=== PATIENT | male | born 1950 | race Caucasian/White ===

== ENCOUNTER 2020-06-10 17:15 | Inpatient (IN) | payer MEDICARE, OTHER ==
[~2020-06-10] VITALS: Ht 162.6 cm; Wt 83.9 kg
--- NOTE | 2020-06-10 17:45 | NUR ---
home, found in ground unable to take care ofself s/p welfare check. per ems, pt depressed s/p passing 1 month ago. patient a/ox3, breathing even and unlabored, no sob noted. Needs attended, attached to the surveillance monitor.
[2020-06-10] MEDS ORDERED: IV NS 0.9% 1,000 ML BAG IV ONE (18:00)
--- NOTE | 2020-06-10 18:11 | NUR ---
SEEN BY DR. VENTURA.
[2020-06-10 18:21] LABS: BASOPHILS % (AUTO) 0.5 % (0.0-2.0); EOSINOPHILS % (AUTO) 0.9 % (0.0-6.0); HEMATOCRIT 43 % (39-51); HEMOGLOBIN 13.3 g/dL (13.5-17.5); LYMPHOCYTES # (AUTO) 1.1 /CMM (0.8-4.8); LYMPHOCYTES % (AUTO) 10.8 % (20.0-44.0); MEAN CORPUSCULAR HGB CONC 31 g/dl (31.0-36.0); MEAN CORPUSCULAR VOLUME 75 fL (80-96); MONOCYTES # (AUTO) 0.6 /CMM (0.1-1.30); MONOCYTES % (AUTO) 5.3 % (2.0-12.0); NEUTROPHILS # (AUTO) 8.6 /CMM (1.8-8.9); NEUTROPHILS % (AUTO) 82.5 % (43.0-81.0); PLATELET COUNT (AUTO) 158 /CMM (150-450); RED BLOOD CELL COUNT(AUTO) 5.72 MIL/uL (4.5-6.0); WHITE BLOOD COUNT (AUTO) 10.4 K/uL (4.3-11.0)
[2020-06-10 18:28] LABS: CALCIUM, SERUM 9.2 mg/dL (8.5-10.1); CARBON DIOXIDE 33 mmol/L (21-32); CHLORIDE 105 mmol/L (98-107); CREATININE 2.2 mg/dL (0.6-1.3); GLUCOSE 128 mg/dL (74-106); POTASSIUM 2.9 mmol/L (3.5-5.1); SODIUM SERUM 148 mmol/L (136-145); UREA NITROGEN, BLOOD 38 mg/dL (7-18)
[2020-06-10 18:34] LABS: ACETAMINOPHEN < 10 ug/ml (10-30); ALANINE AMINOTRANSFERASE 39 U/L (12-78); ALBUMIN 3.9 g/dL (3.4-5.0); ALKALINE PHOSPHATASE 85 U/L (46-116); ASPARTATE AMINOTRANSFERASE 115 U/L (15-37); BILIRUBIN,DIRECT 0.5 mg/dL (0.0-0.2); BILIRUBIN,TOTAL 1.4 mg/dL (0.2-1.0); SALICYLATE 0.3 mg/dL (2.8-20.0); TOTAL PROTEIN, SERUM 8.5 g/dL (6.4-8.2)
[2020-06-10 18:35] LABS: ALCOHOL, BLOOD < 3 mg/dL (0-0)
--- NOTE | 2020-06-10 18:39 | NUR ---
PATIENT TAKEN TO RADIOLOGY.
--- NOTE | 2020-06-10 18:47 | NUR ---
PATIENT CAME BACK FROM CT.
--- NOTE | 2020-06-10 19:30 | NUR ---
ENDORSED TO MADY MARTINEZ.
[2020-06-10] MEDS ORDERED: POTASSIUM CL. PREMIX PERIPHER. 50 ML ONE ×2 (19:41→20:42)
[2020-06-10] MEDS ORDERED: LIDOCAINE 2% JEL UROJET 10 ML MM ONE (19:48)
[2020-06-10] MEDS ORDERED: IV NS 0.9% 1,000 ML IV ONE (20:00)
[2020-06-10] MEDS: POTASSIUM CL. PREMIX PERIPHER. 50 ML IV SCH ×2 (20:06→20:46)
--- NOTE | 2020-06-10 20:14 | NUR ---
urine, covid swab collected and sent to lab
[2020-06-10] MEDS ORDERED: ONDANSETRON HCL/PF 4 MG/2 ML VIAL IVP PRN (20:30)
[2020-06-10] MEDS ORDERED: MAG HYDROX/AL HYDROX/SIMETH 30 ML UDC PO PRN (20:30)
[2020-06-10] MEDS ORDERED: MAGNESIUM HYDROXIDE 30 ML UDC PO PRN (20:30)
[2020-06-10] MEDS ORDERED: Z GUARD REMEDY 2 OZ OINT TP PRN (20:30)
[2020-06-10] MEDS ORDERED: ACETAMINOPHEN 325 MG TABLET PO PRN (20:30)
[2020-06-10 20:40] LABS: APPEARANCE,URINE Clear (CLEAR); BILIRUBIN,URINE MODERATE (NEGATIVE); BLOOD, URINE Large Ery/uL (NEGATIVE); COLOR,URINE Yellow (YELLOW); KETONES,URINE Trace (NEGATIVE); LEUKOCYTE ESTERASE ,URINE Negative (NEGATIVE); NITRITE, URINE Negative (NEGATIVE); PH,URINE 5.5 (5.0-8.0); PROTEIN,URINE 100 mg/dl (NEGATIVE); UGLUCOSE Negative (NEGATIVE)
--- NOTE | 2020-06-10 21:01 | NUR ---
LAB CALLED REGARDING NEGATIVE COVID RESULT.
--- NOTE | 2020-06-10 21:13 | NUR ---
TELE 327-2
--- NOTE | 2020-06-10 21:23 | NUR ---
report given to amador rene for js; pt will be transported to 3rd floor
[2020-06-10 21:58] LABS: BACTERIA,URINE Few /HPF (None Seen); SQUAMOUS EPITHELIAL CELL,UR Few /HPF (None Seen); URINE AMORPHOUS URATE Moderate /HPF (None Seen); WBC,URINE 2-4/HPF /HPF (0-3)
[2020-06-10 21:59] LABS: COARSE GRANULAR CASTS,URINE Few /LPF (None Seen); MUCUS,URINE Few /LPF (None Seen)
[2020-06-10 22:00] VITALS: BP 142/89
--- NOTE | 2020-06-10 22:00 | NUR ---
ADMISSION NOTE PATIENT ADMITTED TO [address] CORCORAN ARRIVED ON UNIT 2150 PT ORIENTED TO ROOM. AXO X4 SPEAKS ARMENIAN. BED DOWN LOCKED SRX2. PT GIVEN CALL LIGHT VERBALIZED UNDERSTANDING TO CALL FOR ASSISTANCE IF GETTING OOB. CC WAS PT FOUND LYING IN BEDROOM AT HOME DRUING POLICE SAFETY CHECK. BROUGHT TO ER. ADMITTED FOR RHABDOMYOLOSIS. VSS. PT DENIES PAIN. NEW ORDERS RECIEVED. ADMISSION ASSESSMENT PERFORMED.
--- NOTE | 2020-06-10 22:13 | NUR ---
pt transported to 3rd floor
[2020-06-10 22:26] VITALS: BP 142/89
[2020-06-10] MEDS: IV 1/2NS 1000 ML 1,000 ML IV SCH (23:04)
--- NOTE | 2020-06-10 23:05 | NUR ---
dr. small in to see the patient.
[2020-06-10] MEDS: ENOXAPARIN SODIUM 30 MG/0.3 ML DISP.SYRIN SQ SCH (23:09)
[2020-06-10] MEDS ORDERED: ALPR2TAB2 PO (23:59)
[2020-06-10] MEDS ORDERED: ZOLP10TA2 PO (23:59)
--- NOTE | 2020-06-11 06:30 | NUR ---
RN PM CLOSING NOTE. PT SEEN RESTING IN BED WITH EYES CLOSED. IN NO APPAREN DISTRESS. IVF RUNNING TO RIGHT HAND WITH NO S/S OF INFILTRATION. PT NPO FOR US OF KIDNEYS SCHEDULED FOR TODAY. BED DOWN LOCKED SRX2 BED ALARM ACTIVE. WILL ENDORSE TO ONCOMING SHIFT.
[2020-06-11] MEDS: IV 1/2NS 1000 ML 1,000 ML IV SCH ×2 (07:08→17:00)
--- NOTE | 2020-06-11 07:30 | NUR ---
RN OPENING NOTES PATIENT IN BED RESTING. A/OX3, ABLE TO MAKE NEEDS KNOWN. NOT IN ANY FORM OF DISTRESS. NO SOB. DENIED PAIN OR DISCOMFORT AT THIS TIME. IV ACCESS INTACT AND PATENT. KEPT PATIENT SAFE AND COMFORTABLE. BED IN LOW LOCKED POSIITON. SIDERAILS UPX2,CALL LIGHT IN REACH. WILL CONT TO MONITOR ACCORDINGLY
[2020-06-11 07:42] LABS: BASOPHILS % (AUTO) 0.3 % (0.0-2.0); EOSINOPHILS % (AUTO) 2.8 % (0.0-6.0); HEMATOCRIT 36 % (39-51); HEMOGLOBIN 11.3 g/dL (13.5-17.5); LYMPHOCYTES # (AUTO) 0.8 /CMM (0.8-4.8); LYMPHOCYTES % (AUTO) 12.7 % (20.0-44.0); MEAN CORPUSCULAR HGB CONC 31 g/dl (31.0-36.0); MEAN CORPUSCULAR VOLUME 74 fL (80-96); MONOCYTES # (AUTO) 0.4 /CMM (0.1-1.30); MONOCYTES % (AUTO) 6.4 % (2.0-12.0); NEUTROPHILS # (AUTO) 5.2 /CMM (1.8-8.9); NEUTROPHILS % (AUTO) 77.8 % (43.0-81.0); PLATELET COUNT (AUTO) 121 /CMM (150-450); RED BLOOD CELL COUNT(AUTO) 4.92 MIL/uL (4.5-6.0); WHITE BLOOD COUNT (AUTO) 6.6 K/uL (4.3-11.0)
[2020-06-11 07:45] VITALS: BP 141/83
[2020-06-11 07:56] VITALS: BP 141/83
[2020-06-11 07:56] LABS: IRON, SERUM 54 ug/dl (50-175); TOTAL IRON BINDING CAPACITY 216 ug/dl (250-450)
[2020-06-11 07:58] LABS: CREATINE KINASE, TOTAL 878 U/L (39-308)
[2020-06-11 08:00] LABS: ALANINE AMINOTRANSFERASE 52 U/L (12-78); ALBUMIN 2.8 g/dL (3.4-5.0); ALKALINE PHOSPHATASE 73 U/L (46-116); ASPARTATE AMINOTRANSFERASE 125 U/L (15-37); BILIRUBIN,DIRECT 0.4 mg/dL (0.0-0.2); BILIRUBIN,TOTAL 0.9 mg/dL (0.2-1.0); CALCIUM, SERUM 7.8 mg/dL (8.5-10.1); CARBON DIOXIDE 34 mmol/L (21-32); CHLORIDE 106 mmol/L (98-107); CREATININE 1.7 mg/dL (0.6-1.3); GLUCOSE 97 mg/dL (74-106); MAGNESIUM 2.1 mg/dL (1.8-2.4); PHOSPHORUS 4.4 mg/dL (2.5-4.9); SODIUM SERUM 148 mmol/L (136-145); UREA NITROGEN, BLOOD 33 mg/dL (7-18)
[2020-06-11 08:25] LABS: POTASSIUM 2.8 mmol/L (3.5-5.1)
[2020-06-11] MEDS ORDERED: POTASSIUM CL. PREMIX PERIPHER. 50 ML IV SCH (10:30)
[2020-06-11] MEDS: POTASSIUM CHLORIDE 20 MEQ TAB.PRT.SR PO SCH ×2 (11:22→11:52)
--- NOTE | 2020-06-11 11:32 | NUR ---
Curbing Stonecutter consult requested by Luis Sahni MD as patient is elderly, lives alone, and was found unable to care for himself. Per MD note, patient presented to [facility] ER because he was found on the ground, unable to take care of himself when the [employer] came for a welfare check. Patient is a 70-year-old male. Patient was alert and oriented x3/4. Patient confirmed date of and informed this SW that he lives in an apartment but also has a home in [place]. Patient reports routine including driving to [place] every morning, meeting a friend at [employer] restaurant, and having a steak for breakfast. Patient reports that his two daughters and left the home approximately 5 years ago. Patient does not understand the reason why. All patient can report is that his had Alzheimers disease, but patient does not know if his is alive. Patient reports having a sister and a brother visit him often in his home and an additional sister in [place] who presently does not want to visit him due to COVID-19. Patient reports that his sister brings food to his home or he goes out to eat at restaurants. Patient did not want to be referred to services like Meals on Wheels. Patient reports a cleaning lady coming to his home, once a month. This SW asked the patient if he would like information about In-Home Support Services and patient reported that he had already applied and been accepted. However, patient reports that he did not like the 24-hour care they provided as he argued with the staff. Patient reports ending this program. Patient reports not wanting to move and only wanting to stay in his home. This SW asked about having this cleaning lady come into the home to check on him or his sister and patient did not want more interactions. 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 This SW to attempt to speak with patients sister and obtain information regarding [employer] to present to this patient . This SW to return to see the patient. SW to remain available for all needs regarding this patient.
[2020-06-11] MEDS ORDERED: POTASSIUM CHLORIDE 10 MEQ TABLET.SA PO ONE (12:30)
--- NOTE | 2020-06-11 15:00 | NUR ---
stool sent to lab. gave to Juana
[2020-06-11 15:39] VITALS: BP_SYST 159; BP_DIAS 3; BP_DIAS 93
--- NOTE | 2020-06-11 18:49 | NUR ---
RN CLOSING NOTES PATIENT IN STABLE CONDITION. ALL NEEDS ATTENDED AND PROVIDED. ASSISTED WITH ADLS. KEPT PATIENT SAFE AND COMFORTABLE. BED IN LOW/LOCKED POSITION. SIDERAILS UP X2. CALL LIGHT IN REACH. WILL ENDORSE ACCORDINGLY.
--- NOTE | 2020-06-11 19:40 | NUR ---
MS RN NOTES PATIENT IN BED, AWAKE, ALERT AND ORIENTED X 3-4. BREATHING EVEN AND UNLABORED ON ROOM AIR. SHOWS NO SIGNS OF ACUTE RESPIRATORY DISTRESS. NO ACUTE PAIN. FC INTACT AND IN PLACE FLOWING URINE. IV ON R HAND 20G RUNNING 1/2 NS AT 100ML/HR. SHOWS NO SIGNS OF INFILTRATION, NO REDNESS. SAFETY PRECAUTION IN PLACE. BED IN LOWEST POSITION, LOCKED, AND CALL LIGHT KEPT WITHIN REACH. WILL CONTINUE TO MONITOR.
[2020-06-11 20:00] VITALS: BP 164/93
[2020-06-11] MEDS: ENOXAPARIN SODIUM 30 MG/0.3 ML DISP.SYRIN SQ SCH (20:59)
[2020-06-11] MEDS ORDERED: ZOLPIDEM TARTRATE 10 MG TABLET PO PRN (21:00)
--- NOTE | 2020-06-11 21:19 | NUR ---
MS RN NOTES PATIENT REQUESTED AMBMARICRUZ. GIVEN AT 0115. WILL CONTINUE TO MONITOR.
[2020-06-12] MEDS: IV 1/2NS 1000 ML 1,000 ML IV SCH (03:36)
[2020-06-12 06:41] LABS: BASOPHILS % (AUTO) 0.2 % (0.0-2.0); EOSINOPHILS % (AUTO) 2.7 % (0.0-6.0); HEMATOCRIT 35 % (39-51); HEMOGLOBIN 10.9 g/dL (13.5-17.5); LYMPHOCYTES # (AUTO) 0.7 /CMM (0.8-4.8); LYMPHOCYTES % (AUTO) 13.7 % (20.0-44.0); MEAN CORPUSCULAR HGB CONC 31 g/dl (31.0-36.0); MEAN CORPUSCULAR VOLUME 74 fL (80-96); MONOCYTES # (AUTO) 0.4 /CMM (0.1-1.30); MONOCYTES % (AUTO) 7.1 % (2.0-12.0); NEUTROPHILS # (AUTO) 3.9 /CMM (1.8-8.9); NEUTROPHILS % (AUTO) 76.3 % (43.0-81.0); PLATELET COUNT (AUTO) 113 /CMM (150-450); RED BLOOD CELL COUNT(AUTO) 4.78 MIL/uL (4.5-6.0); WHITE BLOOD COUNT (AUTO) 5.2 K/uL (4.3-11.0)
--- NOTE | 2020-06-12 06:56 | NUR ---
MS RN NOTES PATIENT IN BED, ASLEEP, ALERT AND ORIENTED X 3. BREATHING EVEN AND UNLABORED ON ROOM AIR. SHOWS NO SIGNS OF ACUTE RESPIRATORY DISTRESS. NO ACUTE PAIN. FC INTACT AND IN PLACE FLOWING URINE. IV ON R HAND 20G RUNNING 1/2 NS AT 100ML/HR. SHOWS NO SIGNS OF INFILTRATION, NO REDNESS. ALL DUE MEDICATIONS GIVEN. SAFETY PRECAUTION IN PLACE. BED IN LOWEST POSITION, LOCKED, AND CALL LIGHT KEPT WITHIN REACH. WILL ENDORSE TO ONCOMING NURSE.
[2020-06-12 06:58] LABS: CREATININE 1.1 mg/dL (0.6-1.3)
[2020-06-12 07:01] LABS: POTASSIUM 2.6 mmol/L (3.5-5.1)
--- NOTE | 2020-06-12 07:14 | NUR ---
MS RN NOTES CRITICAL POTASSIUM CALL FROM LAB 2.6, WILL ENDORSE TO COMING NURSE.
[2020-06-12 08:00] VITALS: BP 153/87
[2020-06-12] MEDS ORDERED: POTASSIUM CL. PREMIX PERIPHER. 50 ML IV SCH (08:00)
--- NOTE | 2020-06-12 09:40 | NUR ---
WOUND CARE CONSULT: PT PRESENTS WITH LEFT HIP DEEP TISSUE INJURY IN EVOLUTION WELL MULTIPLE DRY ABRASIONS AND DISCOLORATIONS, PRESENT ON ADMISSION. RECOMMEND SURGICAL CONSULT. DR TANESHA MICHAEL NOTIFIED OF CONSULT REQUEST. RECOMMENDATIONS MADE FOR SKIN PROTECTION AND WOUND CARE. DISCUSSED WITH NURSING STAFF. IN AGREEMENT WITH PLAN OF CARE. Addendum: 06/12/20 at 0946 by ELLIS CHAVES WNDNU Amended: Links added.
[2020-06-12] MEDS: Potassium Chloride 10 MEQ, LIDOCAINE HCL/PF 1% 1 ML in IV D5W 50 ML IV SCH ×5 (10:44→17:21)
--- NOTE | 2020-06-12 11:29 | NUR ---
SW met with the patient at bedside. Patient was asleep and woke up when this SW called his name. SW following up on conversation from yesterday. Patient does not want in-home care and this SW provided information regarding life alert. This patient was receptive and understood that this is the best option for him. Patient to follow-up after discharge. Information included from website: http://www.[employer]/protectionservices.aspx, The Life Alert Protection Services have been trusted by thousands of Life Alert members for over two decades, Life Alert provides round the clock protection against health emergencies (such as a fall, stroke or heart attack). Also available is the Life Alert HELP cell phone for protection when you are not at home. Life Alert medical protection Bathroom Emergencies Life Alert home invasion protection Life [employer]'s Mobile HELP & GPS PendantMedical Emergencies One touch of a button puts Life Alert members in touch with our dispatchers, who can send paramedics immediately, 24/04. Shower Emergencies The HELP Button is specially designed by [employer] for better protection in the shower, bathtubs, bathroom, bedroom or any similar location within your home. Personal Protection at Home One touch of a button lets our dispatchers hear any activity in your home. We can then yogi away any intruder. Life Alert Mobile For protection away from home push a special cell phone button to reach Life Alert's Emergency Monitoring Center.
[2020-06-12 14:05] LABS: APPEARANCE,URINE CLEAR (CLEAR); BILIRUBIN,URINE NEGATIVE (NEGATIVE); BLOOD, URINE LARGE Ery/uL (NEGATIVE); COLOR,URINE YELLOW (YELLOW); KETONES,URINE TRACE (NEGATIVE); LEUKOCYTE ESTERASE ,URINE TRACE (NEGATIVE); NITRITE, URINE NEGATIVE (NEGATIVE); PH,URINE 6.5 (5.0-8.0); PROTEIN,URINE 30 mg/dl (NEGATIVE); UGLUCOSE NEGATIVE (NEGATIVE); UROBILINOGEN,URINE 0.2 EU/dL (0.2)
[2020-06-12] MEDS: Fluoxetine 10 mg capsule PO SCH (14:24)
[2020-06-12 14:27] LABS: *SPE A/G RATIO 0.8 (0.7-1.7); *SPE ALBUMIN 2.8 g/dL (2.9-4.4); *SPE ALPHA-1-GLOBULIN 0.3 g/dL (0.0-0.4); *SPE ALPHA-2-GLOBULIN 0.9 g/dL (0.4-1.0); *SPE BETA GLOBULIN 0.9 g/dL (0.7-1.3); *SPE GLOBULIN, TOTAL 3.4 g/dL (2.2-3.9); *SPE M-SPIKE Not Observed g/dL (Not Observed); *SPEGAMMA GLOBULIN 1.4 g/dL (0.4-1.8)
[2020-06-12 14:30] LABS: BACTERIA,URINE 1+ /HPF (None Seen); RBC,URINE 21-50 /HPF (0-2); SQUAMOUS EPITHELIAL CELL,UR 0-2 /HPF (None Seen)
[2020-06-12] MEDS ORDERED: LOPERAMIDE HCL (2 MG CAP) 2 MG CAPSULE PO PRN (14:30)
[2020-06-12 14:38] LABS: CREATININE, URINE 106.3 MG/DL (30.0-125.0); URINE TOTAL PROTEIN 78.8 mg/dL (0-11.9)
[2020-06-12 14:40] LABS: EOSINOPHIL,URINE None Seen
[2020-06-12 16:16] VITALS: BP 156/81
[2020-06-12] MEDS: IV 1/2NS 1000 ML 1,000 ML IV PRN (16:56)
--- NOTE | 2020-06-12 19:20 | NUR ---
MS RN OPENING NOTES: RECEIVED PATIENT IN BED, AWAKE, A/O X3. NO S/S DISTRESS NOTED. NO COMPLAIN OF PAIN. HOB ELEVATED. CALL LIGHT WITHIN REACH. BED ALARM ON. BED IN LOWEST AND LOCKED POSITION.
--- NOTE | 2020-06-12 19:23 | NUR ---
rn notes iphone returned to patient. It was charging from the nursing station.
[2020-06-12 20:00] VITALS: BP 171/94
[2020-06-12 20:32] VITALS: BP 171/94
[2020-06-12 20:49] VITALS: BP 146/86
[2020-06-12] MEDS: ENOXAPARIN SODIUM 40 MG/0.4 ML DISP.SYRIN SQ SCH (20:53)
[2020-06-12] MEDS ORDERED: ENOXAPARIN SODIUM 40 MG/0.4 ML DISP.SYRIN SQ SCH (21:00)
--- NOTE | 2020-06-13 05:56 | NUR ---
MS RN CLOSING NOTES: PATIENT IN BED, A/O X3. CALL LIGHT WITHIN REACH. BED ALARM ON. BED IN LOWEST AND LOCKED POSITION. NO S/S DISTRESS NOTED. NO COMPLAIN OF PAIN. WITH HENLEY CATHETER INTACT, WITH CLEAR TED COLORED URINE OUTPUT. LEFT HIP DTI- CLEANSED WITH NS, PAT DRY AND APPLIED XEROFORM DRESSING AND COVERED WITH MEPILEX.
--- NOTE | 2020-06-13 07:30 | NUR ---
DISREGARD NOTE BELOW, WRONG PT
--- NOTE | 2020-06-13 07:30 | NUR ---
MS/RN OPENING NOTE Received patient in bed, non-verbal, responsive to verbal and tactile stimulation by eye opening. Breathing even and non-labored on 2L oxygen via NC. No respiratory or cardiac distress noted. PICC line access noted on AMIE, patent and intact, and flushing well on one port. R CW HD cath in place with clean dressing. G-tube in place, covered with abdominal pad since it is leaking, notified MD. Held g-tube feeding and meds for now until MD assesses site. Wound dressings remain C/D/I, will continue to monitor. Fall precautions maintained. Will continue with current plan of care.
--- NOTE | 2020-06-13 07:30 | NUR ---
MS/RN OPENING NOTE Received patient awake in bed, A&O x 4. No complaints of pain and discomfort at this time. Breathing even and non-labored on RA, no SOB noted. No cardiac distress noted. IV access noted on R hand #20, patent and intact, running 1/2 NS @ 40 ml/hr. No s/s of infiltration, infection, or bleeding noted on site. L hip dressing remains C/D/I. Sensation from all peripheral extremities intact. Fall precautions maintained. Will continue with current plan of care.
[2020-06-13 07:43] LABS: BASOPHILS % (AUTO) 0.2 % (0.0-2.0); EOSINOPHILS % (AUTO) 2.7 % (0.0-6.0); HEMATOCRIT 34 % (39-51); HEMOGLOBIN 10.6 g/dL (13.5-17.5); LYMPHOCYTES # (AUTO) 0.8 /CMM (0.8-4.8); MEAN CORPUSCULAR HGB CONC 31 g/dl (31.0-36.0); MEAN CORPUSCULAR VOLUME 74 fL (80-96); MONOCYTES # (AUTO) 0.3 /CMM (0.1-1.30); MONOCYTES % (AUTO) 6.9 % (2.0-12.0); NEUTROPHILS # (AUTO) 3.5 /CMM (1.8-8.9); NEUTROPHILS % (AUTO) 73.2 % (43.0-81.0); PLATELET COUNT (AUTO) 126 /CMM (150-450); RED BLOOD CELL COUNT(AUTO) 4.63 MIL/uL (4.5-6.0); WHITE BLOOD COUNT (AUTO) 4.8 K/uL (4.3-11.0)
[2020-06-13 08:00] VITALS: BP 169/76
[2020-06-13 08:12] LABS: CALCIUM, SERUM 8.1 mg/dL (8.5-10.1)
[2020-06-13 08:28] LABS: POTASSIUM 2.7 mmol/L (3.5-5.1)
--- NOTE | 2020-06-13 08:37 | NUR ---
MS/RN NOTE Lab reported critical lab value of 2.7 for potassium, notified , who will put orders in.
[2020-06-13] MEDS: POTASSIUM CL. PREMIX PERIPHER. 50 ML IV SCH ×6 (11:18→17:53)
[2020-06-13] MEDS: CEFTRIAXONE 1 G in IV D5W 50 ML IV SCH (12:15)
--- NOTE | 2020-06-13 12:15 | NUR ---
MS/RN NOTE Notified Stanislav KNAPSACK SPRAYER regarding lab result of positive C-diff in stool called by lab, will put in orders.
[2020-06-13] MEDS: Fluoxetine 10 mg capsule PO SCH (12:18)
[2020-06-13] MEDS: VANCOMYCIN HCL 125 MG/2.5 ML ORAL.SUSP PO SCH ×2 (13:08→17:29)
[2020-06-13] MEDS: METRONIDAZOLE 500 MG TABLET PO SCH ×2 (13:08→20:10)
[2020-06-13] MEDS ORDERED: Fluoxetine 10 mg capsule PO ONE (15:30)
[2020-06-13 16:00] VITALS: BP 177/98
--- NOTE | 2020-06-13 19:00 | NUR ---
MS/RN CLOSING NOTE Patient remain stable, resting in bed, A&O x 4. Denies any complaints of pain and discomfort throughout shift. Breathing even and non-labored on RA. No respiratory cardiac distress noted. IV access noted on R hand #20, patent and intact, running 1/2 NS @ 40 ml/hr. No s/s of infiltration, infection, or bleeding noted on site. L hip dressing done. Sensation from all peripheral extremities intact. Fall and contact precautions maintained. Will endorse to paper sorter nurse.
--- NOTE | 2020-06-13 19:40 | NUR ---
MS/RN OPENING NOTES RECEIVED PATIENT IN BED, RESPIRATIONS EVEN AND UNLABORED, ON ROOM AIR DENIES ANY PAIN, ON MED SURG, WITH HENLEY DRAINING YELLOW URINE, PER PT WITH WEAKNESS AND UNSTEADY, IV SITE ON RIGHT HAND PATENT ON IV FLUIDS, TO MONITOR FOR ANY CHANGES, BED LOCKED,CALL LIGHTS WITHIN REACH.WILL MONITOR.
[2020-06-13 20:00] VITALS: BP_SYST 153; BP_SYST 97; BP_DIAS 77; BP_DIAS 83
[2020-06-13] MEDS: ENOXAPARIN SODIUM 40 MG/0.4 ML DISP.SYRIN SQ SCH (20:16)
--- NOTE | 2020-06-13 20:35 | NUR ---
blood pressure rechecked and checked right arm obtain blood pressure reading lower at 153/83.
[2020-06-14] MEDS: VANCOMYCIN HCL 125 MG/2.5 ML ORAL.SUSP PO SCH ×4 (00:08→19:00)
[2020-06-14] MEDS: METRONIDAZOLE 500 MG TABLET PO SCH ×3 (04:09→21:23)
[2020-06-14] MEDS: IV 1/2NS 1000 ML 1,000 ML IV PRN (06:57)
[2020-06-14 07:29] LABS: CALCIUM, SERUM 8.8 mg/dL (8.5-10.1); POTASSIUM 3.1 mmol/L (3.5-5.1)
--- NOTE | 2020-06-14 07:30 | NUR ---
MS/RN OPENING NOTE Received patient awake in bed, A&O x 4. Breathing even and non-labored on RA, no SOB noted. No cardiac distress noted. Denies pain/discomfort at this moment. IV access noted on R hand #20, patent and intact, running 1/2 NS @ 40 ml/hr. No s/s of infiltration, infection, or bleeding noted on site. L hip dressing remains C/D/I. Sensation from all peripheral extremities intact. Bed locked to its lowest position, side rails up x 2, bed alarm on, call light in reach. Instructed patient to use call light when in need of assistance. Will continue with current medical management.
[2020-06-14 07:49] LABS: BASOPHILS % (AUTO) 0.3 % (0.0-2.0); EOSINOPHILS % (AUTO) 1.8 % (0.0-6.0); HEMATOCRIT 39 % (39-51); HEMOGLOBIN 11.9 g/dL (13.5-17.5); LYMPHOCYTES # (AUTO) 0.9 /CMM (0.8-4.8); MEAN CORPUSCULAR HGB CONC 31 g/dl (31.0-36.0); MEAN CORPUSCULAR VOLUME 75 fL (80-96); MONOCYTES # (AUTO) 0.5 /CMM (0.1-1.30); MONOCYTES % (AUTO) 6.8 % (2.0-12.0); NEUTROPHILS # (AUTO) 5.6 /CMM (1.8-8.9); NEUTROPHILS % (AUTO) 79.1 % (43.0-81.0); PLATELET COUNT (AUTO) 157 /CMM (150-450); RED BLOOD CELL COUNT(AUTO) 5.21 MIL/uL (4.5-6.0); WHITE BLOOD COUNT (AUTO) 7.1 K/uL (4.3-11.0)
[2020-06-14 08:00] VITALS: BP 156/89
[2020-06-14] MEDS: POTASSIUM CL. PREMIX PERIPHER. 50 ML IV SCH ×3 (09:34→11:50)
[2020-06-14] MEDS: CEFTRIAXONE 1 G in IV D5W 50 ML IV SCH (12:50)
[2020-06-14] MEDS: Fluoxetine 10 mg capsule PO SCH (12:52)
[2020-06-14 16:00] VITALS: BP 156/91
--- NOTE | 2020-06-14 19:00 | NUR ---
MS/RN OPENING NOTE Patient resting in bed, A&O x 4. All needs met and attended to. Breathing even and non-labored on RA, no SOB noted. No cardiac distress noted. Denies pain/discomfort at this moment. IV access noted on ; FA #22, patent and intact, running 1/2 NS @ 40 ml/hr. No s/s of infiltration, infection, or bleeding noted on site. L hip dressing remains C/D/I. Sensation from all peripheral extremities intact. Fall precautions maintained. Will endorse to maintenance technician 3rd shift nurse.
--- NOTE | 2020-06-14 19:00 | NUR ---
MS/RN CLOSING NOTE BELOW
--- NOTE | 2020-06-14 19:30 | NUR ---
MS/RN CLOSING NOTES: Received Patient awake in bed, A&O x 4. Breathing even and non-labored on RA, no SOB noted. No cardiac distress noted. Denies pain/discomfort at this moment. IV access noted on R hand #20, patent and intact, running 1/2 NS @ 40 ml/hr. No s/s of infiltration, infection, or bleeding noted on site. Bed locked to its lowest position, side rails up x 2, bed alarm on, call light in reach. Will continue monitoring accordingly.
[2020-06-14 20:00] VITALS: BP 152/81
[2020-06-14] MEDS: ENOXAPARIN SODIUM 40 MG/0.4 ML DISP.SYRIN SQ SCH (21:32)
[2020-06-15] MEDS: VANCOMYCIN HCL 125 MG/2.5 ML ORAL.SUSP PO SCH ×5 (00:04→23:27)
[2020-06-15] MEDS: METRONIDAZOLE 500 MG TABLET PO SCH ×3 (04:36→21:40)
[2020-06-15 07:10] LABS: BASOPHILS % (AUTO) 0.7 % (0.0-2.0); EOSINOPHILS % (AUTO) 3.1 % (0.0-6.0); HEMATOCRIT 35 % (39-51); HEMOGLOBIN 10.8 g/dL (13.5-17.5); LYMPHOCYTES # (AUTO) 0.8 /CMM (0.8-4.8); LYMPHOCYTES % (AUTO) 14.4 % (20.0-44.0); MEAN CORPUSCULAR HGB CONC 31 g/dl (31.0-36.0); MEAN CORPUSCULAR VOLUME 73 fL (80-96); MONOCYTES # (AUTO) 0.4 /CMM (0.1-1.30); MONOCYTES % (AUTO) 6.9 % (2.0-12.0); NEUTROPHILS # (AUTO) 4.2 /CMM (1.8-8.9); NEUTROPHILS % (AUTO) 74.9 % (43.0-81.0); PLATELET COUNT (AUTO) 173 /CMM (150-450); RED BLOOD CELL COUNT(AUTO) 4.77 MIL/uL (4.5-6.0); WHITE BLOOD COUNT (AUTO) 5.6 K/uL (4.3-11.0)
--- NOTE | 2020-06-15 07:37 | NUR ---
MS/RN OPENING NOTES: Patient awake in bed, A&O x 4. Breathing even and non-labored on RA, no SOB noted. No cardiac distress noted. Denies pain/discomfort at this moment. IV access noted on R hand #20, patent and intact, running 1/2 NS @ 40 ml/hr. No s/s of infiltration, infection, or bleeding noted on site. Bed locked to its lowest position, side rails up x 2, bed alarm on, call light in reach. Will endorse to day shift.
[2020-06-15 08:00] VITALS: BP 162/95
[2020-06-15 08:14] LABS: CALCIUM, SERUM 8.8 mg/dL (8.5-10.1)
[2020-06-15] MEDS ORDERED: POTASSIUM CHLORIDE 20 MEQ TAB.PRT.SR PO ONE (09:00)
[2020-06-15] MEDS: CEFTRIAXONE 1 G in IV D5W 50 ML IV SCH (11:59)
[2020-06-15] MEDS: Fluoxetine 10 mg capsule PO SCH (12:04)
--- NOTE | 2020-06-15 13:05 | NUR ---
SM RN NOTES PATIENTS HENLEY REMOVED WILL MONITOR FOR RETENTION.
[2020-06-15] MEDS ORDERED: FLUO10CA27 PO (13:17)
[2020-06-15] MEDS ORDERED: METR500T PO (13:17)
[2020-06-15] MEDS ORDERED: VANC125C11 PO (13:17)
--- NOTE | 2020-06-15 15:29 | NUR ---
MS RN NOTES PATIENT WAITING FOR PLACEMENT.
[2020-06-15 16:00] VITALS: BP 149/96
--- NOTE | 2020-06-15 19:09 | NUR ---
MS RN NOTES PATIENT IN BED RESTING NO SOB OR ACUTE DISTRESS. PATIENT WAITING FOR PLACEMENT. DC WAS HELD TODAY, NO PLACEMENT FOUND YET. ALL DUE MEDICATIONS ADMINISTERED. ALL NEEDS MET. SAFETY MEASURES IN PLACE. WILL ENDORSE CARE TO PM SHIFT.
--- NOTE | 2020-06-15 19:53 | NUR ---
MS RN OPENING NOTE: Patient in bed awake, alert, and oriented x 4. Patient able to make needs known. Patient denies pain or discomfort at this time. Patient breathing well on room air, no SOB, or respiratory distress noted Breathing even and unlabored. Noted IV access on left hand 22 gauge, dry, intact, patent, no redness or infiltration. Safety measures in place, bed in the lowest level, brakes are on, side rails x2 are up, and call light is within reach. Will continue to monitor.
[2020-06-15 20:00] VITALS: BP 146/84
[2020-06-15] MEDS: ENOXAPARIN SODIUM 40 MG/0.4 ML DISP.SYRIN SQ SCH (21:40)
[2020-06-16] MEDS: VANCOMYCIN HCL 125 MG/2.5 ML ORAL.SUSP PO SCH ×2 (05:24→12:15)
[2020-06-16] MEDS: METRONIDAZOLE 500 MG TABLET PO SCH ×2 (05:24→12:15)
--- NOTE | 2020-06-16 07:30 | NUR ---
MS RN CLOSING NOTE: Patient in bed sleeping comfortably. Patient breathing well. Breathing even and unlabored, no SOB, no respiratory distress. Safety precaution is in place bed is in the lowest level, brakes are on, side rails x2 are up, and call light is within reach. Will endorse to next shift.
[2020-06-16 08:00] VITALS: BP 159/80
--- NOTE | 2020-06-16 08:00 | NUR ---
MS RN NOTES PATIENT IN BED RESTING NO SOB OR ACUTE DISTRESS NOTED. PATIENT ALERT, ORIENTED X3. SAFETY MEASURES IN PLACE. PERIPHERAL IV INTACT PATENT. WILL CONTINUE TO MONITOR.
[2020-06-16] MEDS: Fluoxetine 10 mg capsule PO SCH (12:15)
[2020-06-16] MEDS: CEFTRIAXONE 1 G in IV D5W 50 ML IV SCH (12:22)
--- NOTE | 2020-06-16 13:00 | NUR ---
MS RN NOTES PATIENT DISCHARGED TO [facility]. PATIENT IN STABLE CONDITION. DISCHARGE TEACHING PROVIDED, VERBALIZED UNDERSTANDING. PATIENT HIMSELF INFORMED SISTER OF TRANSFER. DISCHARGE PROTOCOL FOLLOWED. PERIPHERAL IV REMOVED WITH MINIMAL BLEEDING. ID BAND REMOVED. AWARE OF ALL ABNORMAL LABS AND TESTS. PATIENT TRANSFERRED BY AMBULANCE. REPORT GIVE AT [facility] TO ANKITA MARTINEZ. AND TO EMT AT BEDSIDE.
== END 2020-06-16 13:50 | DRG 557 ==
LOC: ER 17:24 → TELE 21:35 → MED 22:18
PROVIDERS: ADMIT Internal Medicine; ATTEND Nurse Practitioner Acute Care
DX: M62.82 Rhabdomyolysis (principal); N17.0 Acute kidney failure with tubular necrosis; G93.41 Metabolic encephalopathy; E87.0 Hyperosmolality and hypernatremia; F33.2 Major depressive disorder, recurrent severe without psychotic features; N39.0 Urinary tract infection, site not specified; A04.72 Enterocolitis due to Clostridium difficile, not specified as recurrent; E87.6 Hypokalemia; F41.9 Anxiety disorder, unspecified; I10 Essential (primary) hypertension; I25.10 Atherosclerotic heart disease of native coronary artery without angina pectoris; R74.0 Nonspecific elevation of levels of transaminase and lactic acid dehydrogenase [LDH]; R77.1 Abnormality of globulin; D64.9 Anemia, unspecified; R62.7 Adult failure to thrive; Z68.31 Body mass index [BMI] 31.0-31.9, adult; K76.0 Fatty (change of) liver, not elsewhere classified; E86.1 Hypovolemia; Z95.5 Presence of coronary angioplasty implant and graft; D50.9 Iron deficiency anemia, unspecified; L89.96 Pressure-induced deep tissue damage of unspecified site
CPT/HCPCS: 36415; 70450-TC; 72125-TC; 76700-TC; 80048-TC; 80076-TC; 80305; 81000-TC; 82550-TC; 82553; 82570-TC; 83540-TC; 83735-TC; 84100-TC; 84155; 84155-TC; 84165; 84300-TC; 85025-TC; 87081-TC; 87086-TC; 97116-TC; 97530-TC; A6403; C9803-CS; G0378; G0480; J0696; J1650; J3480; J3490; J7030; J7050; J7060